=== PATIENT | female | born 1955 ===

== ENCOUNTER 2019-06-01 05:31 | Day surgery (SDC) | payer OTHER ==
[~2019-06-01 05:31] MED LIST: SYNTHROID112 MCG PO
== END 2019-06-01 13:15 | disposition home or self-care (01) ==
LOC: CIR.AMB 05:31 → ADM 10:30 → CIR.AMB 10:30
DX: D27.1 Benign neoplasm of left ovary (principal)

== ENCOUNTER 2019-06-01 13:38 | Emergency (ER) | payer OTHER ==
[~2019-06-01] VITALS: Ht 157.5 cm; Wt 64.9 kg
== END 2019-06-01 18:31 | disposition home or self-care (01) ==
LOC: ER 13:38
DX: L76.22 Postprocedural hemorrhage of skin and subcutaneous tissue following other procedure (principal)